=== PATIENT | female | born 1990 | race Caucasian/White ===

== ENCOUNTER 2019-09-21 07:25 | Inpatient (IN) | payer OTHER ==
[2019-09-21] MEDS ORDERED: DINOPROSTONE 10 MG VAGINAL SUPPOSITORY VG ONE (08:10)
[2019-09-21] MEDS ORDERED: BUTORPHANOL TARTRATE 1 MG/ML VIAL IVPB ONE (08:14)
[2019-09-21] MEDS ORDERED: PROMETHAZINE HCL 25 MG/1 ML VIAL IVPB ONE (08:14)
[2019-09-21] MEDS ORDERED: DEXTROSE 5%-LACTATED RINGERS 1,000 ML IV SCH (08:15)
[2019-09-21] MEDS ORDERED: SODIUM PHOSPHATE/NA BIPHOS 133 ML ENEMA PR ONE (08:16)
--- NOTE | 2019-09-21 08:20 | HP ---
Past Medical History - Primary Care Physician PCP:: Cecilia Wheatley - Admission Chief Complaint: 29 yrs 40.5 weeks gestation admitted for inducton of labor. last sono on 09/17/19 for post dates , vertex 40 wks ,Bpp 8/8 ,afi14.1, efw 7'1" History of Present Illness: pnc at 1, [facility] , wt [place] 10 lbs panel 04/13/19 ; B pos, Hbsag neg, Rubella immune, varicella immune, Hep c neg , Rpr nr, sickle neg , pap Ascus, Hpv neg , Hiv neg 06/23/19 1 hr [id number], Quantiferon Indeterminate ,1 08/17/19 Chest xray neg . no acute pahology 08/17/19 h/h 9.6/29.4, plt 371 , gbs neg , gc/ct nrg obese late registrant at 17 weeks, NT screen ws not done . 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 Weeks Gestation by Dates: 40.5 ...EDC by Dates: 09/16/19 ...EDC by Sono: 09/16/19 Heme/Onc: Yes: Anemia (rx pnv & iron) Infectious Disease: No: AIDS, HIV, STD's, Tuberculosis Psych: No: Addictions, Anxiety, Bipolar, Depression, Panic, Psychosis, Schizophrenia, Other Endocrine: No: [place]'s Disease, [place]'s Disease, Diabetes Insipidus, Diabetes Mellitus, Hyperparathyroidism, Hyperthyroidism, Hypothyroidism, Osteopenia, SIADH, Other - Past Surgical History Past Surgical History: Yes: None Hx Myomectomy: No Hx Transabdominal Cerclage: No - Smoking History Have you smoked in the past 12 months: No - Alcohol/Substance Use History of Substance Use: reports: None - Social History History of Recent Travel: No Home Medications - Allergies Allergies/Adverse Reactions: Allergies Allergy/AdvReac Type Severity Reaction Status Date / Time No Known Allergies Allergy Verified 09/21/19 07:51 - Home Medications Home Medications: Ambulatory Orders Ferrous Sulfate [Feosol] 325 mg PO BID 09/18/19 Pnv No.95/Ferrous Fum/Folic AC [ Vitamin Tablet] 1 each PO DAILY Physical Exam - Maternity Vital Signs: Vital Signs Temperature 98.1 F 09/21/19 08:00 Pulse Rate 72 09/21/19 08:00 Respiratory Rate 18 09/21/19 08:00 Blood Pressure 103/66 09/21/19 08:00 O2 Sat by Pulse Oximetry (%) Selected Entries 09/21/19 07:52 Weight 180 lb Constitutional: Yes: Well Nourished, Obese Eyes: Yes: WNL HENT: Yes: WNL, Normocephalic Neck: Yes: WNL Cardiovascular: Yes: WNL, Regular Rate and Rhythm Lungs: Clear to auscultation Breast(s): Yes: WNL - Abdominal Exam/OB Fundal Height: 38 Number of Fetuses: Single Presentation: Vertex Regularity: Irregular (9-10 min) Intensity: Mild Monitor Mode: External Heart Rate (range): 140 Heart Rate Location: [facility] Category: I Accelerations: Uniform Decelerations: None - Vaginal Exam/OB Vaginal Bleediing: No Speculum Exam: No Dilatation (cm): 1-2 Effacement (%): 65 Amniotic Membrane Status: Intact Presentation: Vertex/Position (exam at 8.10 AM , cervidil inserted) Station: -3 - Physical Exam Musculoskeletal: Yes: WNL Extremities: Yes: WNL. No: Calf Tenderness Edema: Yes Edema: LLE: 1+, RLE: 1+ Integumentary: Yes: Tattoos Deep Tendon Reflex Grade: Normal +2 ...Motor Strength: WNL Psychiatric: Yes: WNL, Alert, Oriented - Labs Lab Results: Laboratory Tests 09/21/19 09/21/19 09/21/19 10:10 10:10 10:10 WBC 9.5 RBC 4.08 Hgb 9.6 L Hct 29.8 L MCV 73.1 L MCH 23.5 L Plt Count 320 PT with INR 10.80 INR 0.92 PTT (Actin FS) 26.7 Sodium 137 Potassium 4.0 Chloride 106 Carbon Dioxide 24 Anion Gap 7 L BUN 6.9 L Creatinine 0.4 L Est GFR (CKD-EPI)AfAm 161.99 Est GFR (CKD-EPI)NonAf 139.77 Random Glucose 75 Blood Type 09/21/19 10:10 WBC RBC Hgb Hct MCV MCH Plt Count PT with INR INR PTT (Actin FS) Sodium Potassium Chloride Carbon Dioxide Anion Gap BUN Creatinine Est GFR (CKD-EPI)AfAm Est GFR (CKD-EPI)NonAf Random Glucose Blood Type B POSITIVE Problem List - Problems (1) Post-term , 40-42 weeks of gestation Code(s): O48.0 - POST-TERM (2) Encounter for induction of labor Code(s): Z34.90 - ENCNTR FOR SUPRVSN OF NORMAL , UNSP, UNSP TRIMESTER (3) Anemia affecting fifth Problems reviewed: Yes Code(s): O99.019 - ANEMIA COMPLICATING , UNSPECIFIED TRIMESTER; O09.40 - SUPERVISION OF W GRAND MULTIPARITY, UNSP TRIMESTER (4) Obesity (BMI 35.0-39.9 without comorbidity) Code(s): E66.9 - OBESITY, UNSPECIFIED Assessment/Plan 29 yrs 40.5 wks for induction of labor . plan : cervidil induction of labor -inserted at 8.10 AM vaginal delivery trial stadol + phenrgan for labor analgesia
[2019-09-21 08:55] VITALS: BMI 37.6
[2019-09-21 10:34] LABS: BASO % 0.4 % (0-2.0); EOS % 0.7 % (0-4.5); HEMATOCRIT 29.8 % (32.4-45.2); HEMOGLOBIN 9.6 GM/dL (10.7-15.3); LYMPH % 23.8 % (8-40); MCH 23.5 pg (25.7-33.7); MCHC 32.1 g/dl (32.0-36.0); MEAN CELL VOLUME 73.1 fl (80-96); MEAN PLT VOLUME 8.7 fl (7.5-11.1); MONO % 4.8 % (3.8-10.2); NEUT % 70.3 % (42.8-82.8); PLATELET COUNT 320 K/MM3 (134-434); RBC 4.08 M/mm3 (3.60-5.2); RDW 15.5 % (11.6-15.6); WHITE BLOOD COUNT 9.5 K/mm3 (4.0-10.0)
[2019-09-21 10:48] LABS: INR 0.92 (0.83-1.09); PROTHROMBIN TIME (PATIENT) 10.8 SEC (9.7-13.0)
[2019-09-21 10:51] LABS: ACTIVATED PTT 26.7 SECONDS (25.2-36.5)
[2019-09-21 10:56] LABS: BLOOD UREA NITROGEN 6.9 mg/dL (7-18); CALCIUM 8.2 mg/dL (8.5-10.1); CREATININE 0.4 mg/dL (0.55-1.3)
--- NOTE | 2019-09-21 20:25 | PN ---
Progress Note (short form) - Note Progress Note: 8.15 PM cervidil removed cx 2-3 cm/70 %/I , Vx -3 FHR cat-1 150 bpm UC 4-5 min mild Selected Entries 09/21/19 18:04 Temperature 98.0 F Pulse Rate 64 Blood Pressure 109/68 plan fleets enema shower pitocin augmentation Problem List - Problems (1) Post-term , 40-42 weeks of gestation Code(s): O48.0 - POST-TERM (2) Encounter for induction of labor Code(s): Z34.90 - ENCNTR FOR SUPRVSN OF NORMAL , UNSP, UNSP TRIMESTER (3) Anemia affecting fifth Code(s): O99.019 - ANEMIA COMPLICATING , UNSPECIFIED TRIMESTER; O09.40 - SUPERVISION OF W GRAND MULTIPARITY, UNSP TRIMESTER (4) Obesity (BMI 35.0-39.9 without comorbidity) Code(s): E66.9 - OBESITY, UNSPECIFIED
[2019-09-21] MEDS ORDERED: OXYTOCIN 30 UNITS in 0.9% NS 30 UNIT/500 ML INFUS.BAG IVPB SCH (20:30)
[2019-09-21] MEDS ORDERED: OXYTOCIN 30 UNITS in 0.9% NS 30 UNIT/500 ML INFUS.BAG IVPB ONE (22:28)
--- NOTE | 2019-09-21 23:09 | PN ---
Progress Note, Labor Vaginal Exam #1 Labor Exam Date: 09/21/19 Labor Exam Time: 23:00 Heart Rate (range): 150 Dilatation: 4 Effacement (%): 90 Amniotic Membrane Status: Intact Presentation: Vertex/Position Station: -2 Remarks: fhr cat-1 uc 2-3 mn pitocin 2ml/hr reuests epidural labor analgesia Selected Entries 09/21/19 21:54 Temperature 99.0 F Pulse Rate 70 Blood Pressure 120/70 Vaginal Exam #2 Labor Exam Date: 09/22/19 Labor Exam Time: 00:30 Heart Rate (range): 140-100 Dilatation: 8 Effacement (%): 100 Amniotic Membrane Status: Ruptured (AROM , light mec) Station: -1 Remarks: jane cat-2 , recurrent variable decel uc 2-4 min change of position epidural was given at 11.30 PM on 09/21/19 Selected Entries 09/22/19 09/22/19 09/22/19 00:00 00:05 00:10 Temperature 98.3 F Pulse Rate 83 85 Blood Pressure 104/52 L 102/58 L Vaginal Exam #3 Labor Exam Date: 09/22/19 Labor Exam Time: 00:55 Heart Rate (range): 90-150 Dilatation: 10 Effacement (%): 100 Amniotic Membrane Status: Ruptured Presentation: Vertex/Position Station: +2 Remarks: fhr ct-2 change of position fhr back to base line pt has no urge to push, does not feel any pressure
[2019-09-21] MEDS ORDERED: FENTANYL/BUPIVACAINE/NS/PF - PCEA - 50 ML DISP.SYRIN EP ONE (23:14)
[2019-09-21] MEDS ORDERED: ELECTROLYTE-148 SOLN 1,000 ML IV SCH (23:15)
[2019-09-21] MEDS ORDERED: FENTANYL/BUPIVACAINE/NS/PF - PCEA - 50 ML DISP.SYRIN EP SCH (23:30)
[2019-09-21] MEDS ORDERED: NALOXONE HCL 0.4 MG/ML VIAL IVPUSH PRN (23:30)
[2019-09-21] MEDS ORDERED: LIDO 2%/EPI 1:200000 PRESRVFRE (20 ML SDVIAL) ONE (23:32)
[2019-09-22] MEDS ORDERED: OXYTOCIN 20 UNITS in 0.9% NS 20 UNIT/1,000 ML INFUS.BAG IV ONE (01:12)
[2019-09-22] MEDS ORDERED: LIDOCAINE HCL 1% PRESERVATIVE FREE - 30ML VIAL ONE (02:21)
[2019-09-22] MEDS ORDERED: METHYLERGONOVINE MALEATE 0.2 MG/1 ML AMP IM PRN (02:25)
[2019-09-22] MEDS ORDERED: oxyCODONE HCL 5 MG TABLET PO PRN (02:45)
[2019-09-22] MEDS ORDERED: BENZOCAINE 28 GM HEMORRHOIDAL OINTMENT TP PRN (02:45)
[2019-09-22] MEDS ORDERED: WITCH HAZEL 50% (TUCKS) 40 PAD/JAR PAD TP PRN (02:45)
[2019-09-22] MEDS ORDERED: BISACODYL 10 MG SUPP.RECT RC PRN (02:45)
[2019-09-22] MEDS ORDERED: BENZOCAINE 20% 57 GM BOTTLE TP PRN (02:45)
--- NOTE | 2019-09-22 02:57 | PN ---
Delivery - Delivery Vaginal Delivery: No Problems, Spontaneous ( , vx , vic position, shoulder delievered without difficulty . placenta & membranes completely delievered . cord blood segment for cord gas 7 cord blood collected , Trivascular cord . 2 nd degree perineal laceration sutured with chrcatgut #2/0 underlocal anesthesia .Prophylactic IM Methergine was given due to anemia & mutip. Guillermo was just removed before delivey) Type of Anesthesia: Local, Epidural Episiotomy/Laceration: Perineal Extension/lac, 2nd degree EBL (cc): 300 Delivery, Single - Stages of Labor Date 1st Stage Initiatied: 09/21/19 Time 1st Stage Initiated: 19:00 Date 2nd Stage Initiated: 09/22/19 Time 2nd Stage Initiated: 00:55 Date of Delivery: 09/22/19 Time of Delivery: 02:18 Date Placenta Delivered: 09/22/19 Time Placenta Delivered: 02:22 Placenta: Yes: Spontaneous, Uterine Exploration - Condition of Infant Gender: Female Weight: 5 lb 15 oz Position: Left, OA Total Hours ROM (Hrs/Mins): 1hr-52 - 1 Minute Total Score: 9 5 Minutes Total Score: 9 - Feeding Plan Initial Plan: Exclusive throughout hospitalization Remarks - Remarks Remarks: 29 yrs , 40 .5 wks admitted for induction of labor pnc 2, [facility] gbs neg cervidil insertion 09/21/19 followed by pitocin augmentation Intrapartum course uneventful
[2019-09-22] MEDS: IBUPROFEN 600 MG TABLET (FP) PO PRN ×3 (03:10→17:36)
[2019-09-22] MEDS: ACETAMINOPHEN 325 MG TABLET (FP) PO PRN ×3 (03:10→17:35)
[2019-09-22] MEDS: FERROUS SO4 325 MG TABLET (FP) PO SCH (07:24)
[2019-09-23] MEDS: FERROUS SO4 325 MG TABLET (FP) PO SCH ×4 (05:07→18:00)
[2019-09-23 07:58] LABS: BASO % 0.3 % (0-2.0); EOS % 1.1 % (0-4.5); HEMOGLOBIN 8.7 GM/dL (10.7-15.3); LYMPH % 34.3 % (8-40); MCH 23.5 pg (25.7-33.7); MCHC 32.1 g/dl (32.0-36.0); MEAN CELL VOLUME 73.3 fl (80-96); MEAN PLT VOLUME 8.4 fl (7.5-11.1); MONO % 5.5 % (3.8-10.2); NEUT % 58.8 % (42.8-82.8); PLATELET COUNT 283 K/MM3 (134-434); RBC 3.69 M/mm3 (3.60-5.2); RDW 15.6 % (11.6-15.6); WHITE BLOOD COUNT 9.8 K/mm3 (4.0-10.0)
--- NOTE | 2019-09-23 08:18 | PN ---
Post Progress Note - Subjective Subjective: 29 yo Para 1 status post vaginal delivery, seen and evaluated. Doing well. Post Day: 1 Type of Delivery: Vital Signs: Vital Signs Temperature 98 F 09/23/19 02:00 Pulse Rate 70 09/23/19 02:00 Respiratory Rate 18 09/23/19 02:00 Blood Pressure 90/40 L 09/23/19 02:00 O2 Sat by Pulse Oximetry (%) 98 09/22/19 21:00 Uterus: Yes: Fundus Firm Abdomen/GI: Yes: Abdomen soft, Tolerating PO Lochia: Yes: Rubra Lochia, amount: Moderate Extremities: Yes: Calves non-tender Perineum: Yes: Laceration (Healing) Activity: Ambulating - Labs Labs: CBC WBC 9.8 K/mm3 (4.0-10.0) 09/23/19 07:33 RBC 3.69 M/mm3 (3.60-5.2) 09/23/19 07:33 Hgb 8.7 GM/dL (10.7-15.3) L 09/23/19 07:33 Hct 27.0 % (32.4-45.2) L 09/23/19 07:33 MCV 73.3 fl (80-96) L 09/23/19 07:33 MCH 23.5 pg (25.7-33.7) L 09/23/19 07:33 MCHC 32.1 g/dl (32.0-36.0) 09/23/19 07:33 RDW 15.6 % (11.6-15.6) 09/23/19 07:33 Plt Count 283 K/MM3 (134-434) 09/23/19 07:33 MPV 8.4 fl (7.5-11.1) 09/23/19 07:33 Absolute Neuts (auto) 5.8 K/mm3 (1.5-8.0) 09/23/19 07:33 Neutrophils % 58.8 % (42.8-82.8) 09/23/19 07:33 Lymphocytes % 34.3 % (8-40) D 09/23/19 07:33 Monocytes % 5.5 % (3.8-10.2) 09/23/19 07:33 Eosinophils % 1.1 % (0-4.5) 09/23/19 07:33 Basophils % 0.3 % (0-2.0) 09/23/19 07:33 Nucleated RBC % 0 % (0-0) 09/23/19 07:33 Assessment/Plan Status post vaginal delivery Stable Continue care
[2019-09-23] MEDS: PRENATAL VITAMINS W/ FOLIC ACID TABLET (FP) PO SCH ×2 (09:07→18:01)
[2019-09-23] MEDS: IBUPROFEN 600 MG TABLET (FP) PO PRN (09:10)
[2019-09-23] MEDS: ACETAMINOPHEN 325 MG TABLET (FP) PO PRN (09:11)
[2019-09-23] MEDS: OXYTOCIN 20 UNITS in 0.9% NS 20 UNIT/1,000 ML INFUS.BAG IV SCH (20:19)
[2019-09-23] MEDS ORDERED: SENNOSIDES/DOCUSATE COMBO (SENNA PLUS) TABLET (UD) PO PRN (22:00)
[2019-09-24 07:47] VITALS: BP 115/60; PULSE 74; TEMP 98.4
[2019-09-24] MEDS: FERROUS SO4 325 MG TABLET (FP) PO SCH (08:10)
--- NOTE | 2019-09-24 08:31 | DS ---
Physical Exam-[facility] Vital Signs: Vital Signs Temperature 98.4 F 09/24/19 07:20 Pulse Rate 74 09/24/19 07:20 Respiratory Rate 18 09/24/19 07:20 Blood Pressure 115/60 09/24/19 07:20 O2 Sat by Pulse Oximetry (%) 98 09/22/19 21:00 Constitutional: Yes: Well Nourished, No Distress, Calm Eyes: Yes: WNL, Conjunctiva Clear, EOM Intact HENT: Yes: WNL, Atraumatic, Normocephalic Neck: Yes: WNL, Supple, Trachea Midline Cardiovascular: Yes: WNL, Regular Rate and Rhythm Respiratory: Yes: WNL, Regular, CTA Bilaterally Gastrointestinal: Yes: WNL Renal/: Yes: WNL Internal Exam Deferred: Yes ....Post : Yes: Uterus firm, Uterus non-tender, Slight lochia rubra Breast(s): Yes: WNL Musculoskeletal: Yes: WNL Extremities: Yes: WNL Edema: No Integumentary: Yes: WNL Neurological: Yes: WNL, Alert, Oriented Psychiatric: Yes: WNL, Alert, Oriented Labs: CBC, BMP 09/23/19 07:33 09/21/19 10:10 Delivery - Delivery Vaginal Delivery: No Problems, Spontaneous ( , vx , vic position, shoulder delievered without difficulty . placenta & membranes completely delievered . cord blood segment for cord gas 7 cord blood collected , Trivascular cord . 2 nd degree perineal laceration sutured with chrcatgut #2/0 underlocal anesthesia .Prophylactic IM Methergine was given due to anemia & mutip. 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 Insurance Present: No Infant Gender: Female Weight: 5 lb 15 oz Position: Left, OA Total Hours ROM (Hrs/Mins): 1hr-52 - 1 Minute Total Score: 9 5 Minutes Total Score: 9 - Feeding Plan Initial Plan: Exclusive throughout hospitalization Discharge Summary Problems reviewed: Yes Reason For Visit: INDUCTION OF LABOR Current Active Problems Anemia affecting fifth (Acute) Encounter for induction of labor (Acute) Normal spontaneous vaginal delivery (Acute) Obesity (BMI 35.0-39.9 without comorbidity) (Acute) Post-term , 40-42 weeks of gestation (Acute) Procedures: Principal: Other Procedures: second degree repair Hospital Course: anemia Health Concerns: anemia Plan of Treatment: iron, vit, repeat cbc in clinic Goals: hb 12/hct 36 Condition: Stable - Instructions Diet, Activity, Other Instructions: Post Instructions DIET: Continue good diet high in protein, calcium, and iron rich foods. Drink at least eight (8) glasses of water daily in addition to other fluids. ___ Regular diet MEDICATIONS: Continue vitamins and iron as previously directed. Motrin and Tylenol may be taken for minor discomfort. ACTIVITY: Mild to moderate exercise may be started in two (2) weeks. Take frequent rest periods. Resume normal activity after six (6) week check up. WOUND CARE OF OPERATIVE SITE: Continue use of perineal bottle until vaginal discharge stops. Keep area clean. Shower daily. Keep abdominal wound dry. Report any drainage or redness to physician. Tub baths, tampons and douches are not permitted for [address] Breast feeding & or Bottle feediing BREAST CARE: (For those that are not ): If engorgement occurs: Wear tight fitting bra. Take Tylenol or Motrin for pain. Apply cold packs (ice in bags to each breast ) FAMILY PLANNING: There are many control alternatives to pursue and they should be discussed at your first office visit. You may resume sexual activity after your six (6) week check up. (Remember, is not a contraceptive) NEXT PHYSICIAN APPOINTMENT: Be certain to call for a three (3) week appointment, unless otherwise directed. Call Clinic or got to Emergency Dept if you have any of the following: Heavy vaginal bleeding Painful urination Leg pain Unusual odor noted to vaginal bleeding High fever Red streaking noted on breast Referrals: Cecilia Wheatley MD [Staff Physician] - Disposition: HOME - Home Medications Comprehensive Discharge Medication List: Ambulatory Orders Ferrous Sulfate [Feosol] 325 mg PO BID 09/18/19 Pnv No.95/Ferrous Fum/Folic AC [ Vitamin Tablet] 1 each PO DAILY Acetaminophen [Tylenol .Regular Strength -] 650 mg PO Q3H PRN #0 tablet Benzocaine [Americaine 20% [place] -] 1 spray TP PRN PRN bottle 09/23/19 Ferrous Sulfate [Feosol] 325 mg PO BIDWM #60 tab 09/23/19 Ibuprofen [Motrin -] 200 mg PO Q4H PRN tablet 09/23/19 Vitamins (Sjr) - 1 tab PO DAILY #30 tablet 09/23/19 Sennosides/Docusate Sodium [Pericolace -] 2 tablet PO HS PRN #60 tablet Witch [place] 50% (Tucks) [Tucks Pads -] 1 pad TP PRN PRN pad 09/23/19
[2019-09-24] MEDS: PRENATAL VITAMINS W/ FOLIC ACID TABLET (FP) PO SCH (09:03)
== END 2019-09-24 13:30 | disposition home or self-care (01) | DRG 560 ==
LOC: JLDR 07:25 → J3W 09-22 04:46
PROVIDERS: ADMIT Obstetrics & Gynecology; ATTEND Obstetrics & Gynecology
PROC: 3E0P7VZ Introduction of Hormone into Female Reproductive, Via Natural or Artificial Opening (ICD-10-PCS; 2019-09-21)
PROC: 10E0XZZ Delivery of Products of Conception, External Approach (ICD-10-PCS; principal; 2019-09-22)
PROC: 0KQM0ZZ Repair Perineum Muscle, Open Approach (ICD-10-PCS; 2019-09-22)
PROC: 0W8NXZZ Division of Female Perineum, External Approach (ICD-10-PCS; 2019-09-22)
DX: O70.1 Second degree perineal laceration during delivery (principal); O99.214 Obesity complicating childbirth; O48.0 Post-term pregnancy; O99.013 Anemia complicating pregnancy, third trimester; Z3A.40 40 weeks gestation of pregnancy; Z37.0 Single live birth
CPT/HCPCS: 36415; 36600; 59409; 80048; 82803; 85025; 85610; 85730; 86593; 86850; 86900; 86901